=== PATIENT | female | born 1990 | race Caucasian/White ===

== ENCOUNTER → 2016-06-08 | Outpatient (CLI) | payer MEDICAID | LOC: FIMAGING 08:03 | PROVIDERS: ATTEND Advanced Practice Midwife | DX: Z34.02 Encounter for supervision of normal first pregnancy, second trimester (principal); Z3A.20 20 weeks gestation of pregnancy ==

== ENCOUNTER 2016-09-05 23:50 | Observation (INO) | payer MEDICAID ==
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
[2016-09-06] MEDS ORDERED: BETAMETHASONE IM SYRINGE IM ONE (07:15)
--- NOTE | 2016-09-06 07:22 | OBPROG ---
OBG Progress Note Assessment/Plan: Assessment: G1 # 32 6/7 weeks with contractions and positive fibronectin Plan: IV fluids DIC panel and admission labs continuous monitoring betamethasone mfm consult 09/06/16 07:13 Subjective: Patient is doing well. fibronectin was positive. patient began having contractions increasing in frequency and intensity at 530 am. I called to check on patient at 630 and was informed of both of these things. betamethasone and IV fluids were ordered. I came and assessed patient. patients belly is still gravid, soft and non tender. discussed next steps. patient is feeling every other contraction. will see what happens with IVF fluids and after betamethasone. if contractions dont decrease or there is any change in the cervix will start magnesium sulfate. Current Contraction Pattern: Irregular FHR Pattern Variability: Moderate FHR Category: 1 Membranes: Intact ICD10 Worksheet Patient Problems: Problems Problem Status Onset contractions Acute
[2016-09-06] MEDS ORDERED: LR 1,000 ML IV SCH (07:30)
[2016-09-06] MEDS: NIFEdipine 10 MG CAP PO SCH ×3 (08:23→20:11)
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
--- NOTE | 2016-09-06 08:35 | OBPROG ---
OBG Progress Note Assessment/Plan: Assessment: cat1 fhr pain 5/10 regular contractions procardia qid consult with dr. oreilly on POC iv fluid bolus mfm consult vs wnl gbs blood type previous KB at [facility] Plan:procardia consult mfm US today per M 09/06/16 08:35 Subjective: Pain 5/10. Why would you not use terbutaline for the contractions? Why procardia instead of magnesium sulfate? Dr. Oreilly to room to assess patient and come up with POC. Objective: 09/06/16 07:30 - SVE Dilation (cm): 1 Effacement (%): 50 Station: -2 Current Contraction Pattern: Regular FHR (bpm): 130 FHR Category: 1 Membranes: Intact - Physical Exam General Appearance: WD/WN, alert, no apparent distress Respiratory: chest non-tender, lungs clear, normal breath sounds Cardiac/Chest: regular rate, rhythm Abdomen: normal bowel sounds, other (contractions regular. States pain of 5/10 with contractions) Extremities: normal range of motion, Ttuu's sign (negative bilaterally) DTR- Lower Extremities: Knee (R): 1+, Knee (L): 1+ (no clonus) Skin: normal color, warm/dry Neuro/Psych: no motor/sensory deficits, alert, normal mood/affect, oriented x 3 ICD10 Worksheet Patient Problems: Problems Problem Status Onset contractions Acute
[2016-09-06 09:06] LABS: % IMMATURE GRANULYOCYTES 0.8 % (0.0-1.1); ABSOLUTE IMMATURE GRANULOCYTES 0.09 10^3/uL (0.00-0.10); ADD DIFF? NO; ADD MORPH? NO; ADD SCAN? NO; ATYPICAL LYMPHOCYTE FLAG 0 (0-99); FRAGMENT RBC FLAG 0 (0-99); HEMOGLOBIN 12.8 g/dL (12.6-16.3); LEFT SHIFT FLG 0 (0-99); LIPEMIA HEMOLYSIS FLAG 90 (0-99); MEAN CELL HEMOGLOBIN 32.5 pg (27.9-34.1); MEAN CELL HEMOGLOBIN CONCENTR. 34.6 g/dL (32.4-36.7); MEAN CELL VOLUME 93.9 fL (81.5-99.8); MEAN PLATELET VOLUME 10.3 fL (8.7-11.7); PLATELET CLUMPS FLAG 0 (0-99); PLATELET COUNT 216 10^3/uL (150-400); RED BLOOD CELL COUNT 3.94 10^6/uL (4.18-5.33); RED CELL DISTRIBUTION WIDTH 11.7 % (11.5-15.2)
[2016-09-06 09:13] LABS: APTT 25.8 SEC (23.0-38.0)
[2016-09-06 09:17] LABS: PLATELET COUNT 234 10^3/uL (150-400)
[2016-09-06 09:22] LABS: FIBRINOGEN 497 mg/dL (214-456)
[2016-09-06] MEDS ORDERED: ZOLPIDEM TARTRATE 5 MG TAB PO PRN (21:33)
[2016-09-07] MEDS: NIFEdipine 10 MG CAP PO SCH ×2 (01:57→07:53)
[2016-09-07] MEDS ORDERED: BETAMETHASONE IM SYRINGE IM ONE (07:28)
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
== END 2016-09-07 12:42 | disposition home or self-care (01) ==
LOC: UNDOADMOB 23:50 → FLD 23:50 → FOBOP 23:50 → FLD 09-06 00:57 → UNDODISOB 09-07 12:42 → EDSTATUS 09-07 17:16
PROVIDERS: ADMIT Obstetrics & Gynecology; ATTEND Obstetrics & Gynecology
DX: O60.03 Preterm labor without delivery, third trimester (principal); V43.52XD Car driver injured in collision with other type car in traffic accident, subsequent encounter; M79.7 Fibromyalgia; Z3A.32 32 weeks gestation of pregnancy
CPT/HCPCS: 59025; 76816; G0378; J0702

== ENCOUNTER 2016-09-25 11:49 | Inpatient (IN) | payer MEDICAID ==
[2016-09-25] MEDS ORDERED: OLIVE OIL 118 ML BTL MISC PRN (12:03)
[2016-09-25] MEDS ORDERED: TERBUTALINE SULFATE 1 MG/ML VIAL IV PRN (12:03)
[2016-09-25] MEDS ORDERED: LR 1,000 ML IV PRN (12:03)
[2016-09-25] MEDS ORDERED: EPSOM SALT 454 GM TP PRN (12:03)
[2016-09-25] MEDS ORDERED: OXYTOCIN/RINGERS LACTATE 1,000 ML IV PRN (12:03)
[2016-09-25] MEDS ORDERED: LR 500 ML IV PRN (12:23)
[2016-09-25] MEDS ORDERED: OXYTOCIN/RINGERS LACTATE 500 ML IV SCH (12:30)
[2016-09-25 13:14] LABS: % IMMATURE GRANULYOCYTES 0.8 % (0.0-1.1); ABSOLUTE IMMATURE GRANULOCYTES 0.08 10^3/uL (0.00-0.10); ADD DIFF? NO; ADD MORPH? NO; ADD SCAN? NO; ATYPICAL LYMPHOCYTE FLAG 0 (0-99); FRAGMENT RBC FLAG 0 (0-99); HEMATOCRIT 37.1 % (38.0-47.0); LEFT SHIFT FLG 0 (0-99); LIPEMIA HEMOLYSIS FLAG 90 (0-99); MEAN CELL HEMOGLOBIN 32.3 pg (27.9-34.1); MEAN CELL VOLUME 92.3 fL (81.5-99.8); MEAN PLATELET VOLUME 9.9 fL (8.7-11.7); PLATELET CLUMPS FLAG 0 (0-99); PLATELET COUNT 221 10^3/uL (150-400); RED BLOOD CELL COUNT 4.02 10^6/uL (4.18-5.33); RED CELL DISTRIBUTION WIDTH 11.6 % (11.5-15.2)
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
--- NOTE | 2016-09-25 18:09 | OBPROG ---
OBG Labor Progress Note Assessment/Plan: Assessment: 26 y/o @ 35 4/7 weeks with PPROM and pitocin IOL Plan: We are building up gradually on pitocin and developing a good labor pattern. She is coping with the contractions well and alternating between ambulating and resting. status is reassuring. 09/25/16 18:06 Subjective: Pt is doing well feeling some contractions increasing in intensity. Objective: 09/25/16 13:00 Patient ABO/Rh O NEGATIVE 09/25/16 13:00 - SVE Dilation (cm): 3 Effacement (%): 80 Station: -2 Jason Current Contraction Pattern: Irregular (Q 2-5) FHR (bpm): 130 FHR Pattern Variability: Moderate FHR Category: 1 Membranes: SROM Amniotic Fluid Color: Clear Oxytocin Orders Assessment - Pre-Induction/Augmentation Assessment Gestational Age: 35 week(s) and 4 day(s) ICD10 Worksheet Patient Problems: Problems Problem Status Onset premature rupture of membranes Acute contractions Acute
[2016-09-25] MEDS ORDERED: AMMONIA AROMATIC 1 EACH AMP IH ONE (19:10)
[2016-09-25] MEDS ORDERED: LIDOCAINE 1% 300 MG/30 ML SDV ONE (19:10)
[2016-09-25] MEDS ORDERED: OLIVE OIL 118 ML BTL ONE (19:10)
[2016-09-25] MEDS ORDERED: TERBUTALINE SULFATE 1 MG/ML VIAL ONE (19:11)
[2016-09-25] MEDS ORDERED: MISOPROSTOL 200 MCG TAB ONE (19:11)
[2016-09-25] MEDS ORDERED: OXYTOCIN 10 UNIT/ML VIAL ONE (19:11)
--- NOTE | 2016-09-25 21:42 | OBPROG ---
OBG Labor Progress Note Assessment/Plan: Assessment: 26 y/o @ 35 4/7 weeks with PPROM and pitocin IOL Plan: She is making cervical change and coping with contractions well. She is getting into the tub now. status is reassuring. 09/25/16 18:06 09/25/16 21:39 Subjective: Pt is beginning to feel strong contractions, breathing through them. Objective: 09/25/16 13:00 Patient ABO/Rh O NEGATIVE 09/25/16 13:00 - SVE Dilation (cm): 5 Effacement (%): 80 Station: -1 Jason Current Contraction Pattern: Regular (Q 2) FHR (bpm): 140 FHR Pattern Variability: Moderate FHR Category: 1 Membranes: SROM Amniotic Fluid Color: Clear Oxytocin Orders Assessment - Pre-Induction/Augmentation Assessment Gestational Age: 35 week(s) and 4 day(s) ICD10 Worksheet Patient Problems: Problems Problem Status Onset premature rupture of membranes Acute contractions Acute
--- NOTE | 2016-09-25 23:00 | OBPROG ---
OBG Labor Progress Note Assessment/Plan: Assessment: 26 y/o @ 35 4/7 weeks with PPROM and pitocin IOL Plan: Pt is asking for nitrous oxide now. Good cervical progression. 09/25/16 18:06 09/25/16 21:39 09/25/16 22:54 Subjective: Pt is breathing through strong contractions and feeling rectal pressure. She is doing well but feeling tired. Objective: 09/25/16 13:00 Patient ABO/Rh O NEGATIVE 09/25/16 13:00 - SVE Dilation (cm): 7 Effacement (%): 100 Station: 0 Jason Current Contraction Pattern: Regular (Q 2-3) FHR (bpm): 140 FHR Pattern Variability: Moderate FHR Category: 1 Membranes: SROM Amniotic Fluid Color: Clear Oxytocin Orders Assessment - Pre-Induction/Augmentation Assessment Gestational Age: 35 week(s) and 4 day(s) ICD10 Worksheet Patient Problems: Problems Problem Status Onset premature rupture of membranes Acute contractions Acute
[2016-09-25] MEDS ORDERED: HYDROCODONE/APAP 5/325 TAB PO PRN (23:56)
[2016-09-25] MEDS ORDERED: ACETAMINOPHEN 325 MG TAB PO PRN (23:56)
[2016-09-25] MEDS ORDERED: HYDROCORTISONE 0.5% CREAM TP PRN (23:56)
[2016-09-25] MEDS ORDERED: SIMETHICONE 80 MG TAB CHEW PO PRN (23:56)
--- NOTE | 2016-09-26 | OBDEL ---
Info Type: Vaginal GBS+: No Indications for Delivery: PPROM (35 4/7 weeks with PPROM, previously received BMZ, augmentation of labor with pitocin) Vaginal Delivery - Labor and Delivery Onset of Contractions Date: 09/25/16 Onset of Contractions Time: 21:31 Onset of Contractions Type: Induced Rupture of Membranes Date: 09/25/16 Rupture of Membranes Time: 10:30 Rupture of Membranes Type: Premature Amniotic Fluid Color: Clear Dilation Complete Date: 09/25/16 Dilation Complete Time: 23:15 Placenta Delivery Date: 09/25/16 Placenta Delivery Time: 23:36 Total Hours of Labor: 2 Non-surgical Procedures: FSE (placed during second stage to closely monitor FHT , due to prolonged deceleration to 70-80's while pushing) Laceration: 2nd Degree Repair: 2-0, Vicryl Vaginal Sponge Count Correct: Yes Vaginal Needle Count Correct: Yes Vaginal Sweep Performed: Yes EBL: 200 Delivery Events: None - Medications Labor Augmentation/Induction Methods Used: Pitocin Labor Augmentation/Induction Indication: Other (Specify) (PPROM @ 35 4/7 weeks, previously received BMZ, for IOL) [place] Data Jason Delivery Date: 09/25/16 Delivery Time: 23:31 VALENTÍN: 10/26/16 Gestational Age: 35 week(s) and 5 day(s) Sex of : Female Score (1 Min): 7 Score (5 Min): 8 ICD10 Worksheet Patient Problems: Problems Problem Status Onset premature rupture of membranes Acute contractions Acute
[2016-09-26] MEDS: IBUPROFEN 600 MG TAB PO PRN ×4 (00:01→18:15)
[2016-09-26 00:02] LABS: PH VENOUS CORD BLOOD 7.18 (7.20-7.42)
[2016-09-26 02:33] VITALS: RESP 16
[2016-09-26] MEDS: DOCUSATE SODIUM 100 MG CAP PO PRN ×2 (12:36→20:57)
--- NOTE | 2016-09-26 15:11 | OBPP ---
Progress Note Assessment/Plan: Assessment: 26 y/o PPD #1 s/p @ 35 4/7 weeks with PPROM and pitocin IOL Plan: Pt will be moved to a NICU room to be with her baby. support and routine PPC. 09/25/16 18:06 09/25/16 21:39 09/25/16 22:54 09/26/16 15:10 Subjective: Pt is doing well this am. She has min cramping with pumping and mild perineal soreness. She is taking Ibuprofen and doing well. Min lochia, tolerating reg diet. Baby is stable in the NICU needing to start photo therapy. Objective: 09/25/16 13:00 Patient ABO/Rh O NEGATIVE 09/26/16 01:25 Temp Pulse Resp BP Pulse Ox 36.5 C 80 16 110/78 96 09/26/16 08:00 09/26/16 08:00 09/26/16 08:00 09/26/16 08:00 09/26/16 08:00 Uterine Position/Fundal Height: Umbilicus -2 Uterine Tone: Firm Physical Exam - Physical Exam General Appearance: WD/WN, alert, no apparent distress Neck: non-tender, full range of motion, supple Respiratory: chest non-tender, lungs clear, normal breath sounds Cardiac/Chest: regular rate, rhythm Abdomen: normal bowel sounds Extremities: swelling (no), Tutu's sign (neg)
[2016-09-27] MEDS: IBUPROFEN 600 MG TAB PO PRN ×4 (00:04→19:40)
[2016-09-27 08:53] VITALS: O2SAT 95
[2016-09-27] MEDS: DOCUSATE SODIUM 100 MG CAP PO PRN ×2 (13:28→19:40)
--- NOTE | 2016-09-27 17:10 | OBPP ---
Progress Note Assessment/Plan: Assessment:pumping without difficulty pain well managed nipples intact discussed border to begin tomorrow perineum approximated scant rubra lochia voiding without difficulty Plan:expectant management pp day 1 09/27/16 17:08 Subjective: Doing well. Denies difficulties. with assistance. Pumping/ Voiding without difficulty Objective: 09/25/16 13:00 Patient ABO/Rh O NEGATIVE 09/26/16 01:25 Temp Pulse Resp BP Pulse Ox 36.8 C 78 16 101/61 95 09/27/16 08:00 09/27/16 08:00 09/27/16 08:00 09/27/16 08:00 09/27/16 08:00 Uterine Position/Fundal Height: At Umbilicus Uterine Tone: Firm Physical Exam - Physical Exam General Appearance: WD/WN, alert, no apparent distress Abdomen: other (ff2U) Extremities: normal range of motion, Tutu's sign (NEGAtive bilaterally) DTR- Lower Extremities: Knee (R): 1+, Knee (L): 1+ (no clonus bilaterally) Skin: normal color, warm/dry Neuro/Psych: no motor/sensory deficits, alert, normal mood/affect, oriented x 3
[2016-09-28 00:24] VITALS: BP 103/70; PULSE 75; TEMP 97.8
[2016-09-28] MEDS: IBUPROFEN 600 MG TAB PO PRN ×3 (01:06→13:36)
[2016-09-28] MEDS: DOCUSATE SODIUM 100 MG CAP PO PRN (07:24)
--- NOTE | 2016-09-28 13:46 | OBPP ---
Progress Note Assessment/Plan: Assessment: 26 y/o PPD #2 s/p @ 35 weeks ready to d/c to border. Plan: D/c to border today. Rx ibuprofen and follow-up @ [facility] 4 and 6 weeks. 09/25/16 18:06 09/25/16 21:39 09/25/16 22:54 09/26/16 15:10 09/28/16 13:47 Subjective: Pt is doing well today. She has min cramping controlled with Ibuprofen. She is ambulating, voiding and having min lochia. She has not had a BM yet. She is working on nursing and baby is overall doing well. She is ready to d/c to border later today. Objective: 09/25/16 13:00 Patient ABO/Rh O NEGATIVE 09/26/16 01:25 Temp Pulse Resp BP Pulse Ox 36.6 C 75 16 103/70 95 09/28/16 00:22 09/28/16 00:22 09/28/16 00:22 09/28/16 00:22 09/28/16 00:22 Uterine Position/Fundal Height: Umbilicus -3 Uterine Tone: Firm Physical Exam - Physical Exam General Appearance: WD/WN, alert, no apparent distress Neck: non-tender, full range of motion, supple Respiratory: chest non-tender, lungs clear, normal breath sounds Cardiac/Chest: regular rate, rhythm Abdomen: normal bowel sounds Extremities: swelling (no), Tutu's sign (neg)
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
== END 2016-09-28 14:30 | disposition home or self-care (01) | DRG 775 ==
LOC: FLD 11:49 → FOB 09-26 02:00
PROVIDERS: ADMIT Obstetrics & Gynecology; ATTEND Obstetrics & Gynecology
DX: O42.013 Preterm premature rupture of membranes, onset of labor within 24 hours of rupture, third trimester (principal); O76 Abnormality in fetal heart rate and rhythm complicating labor and delivery; O70.1 Second degree perineal laceration during delivery; Z3A.36 36 weeks gestation of pregnancy; Z37.0 Single live birth
CPT/HCPCS: J2590; J3105

== ENCOUNTER 2016-11-03 05:40 | Day surgery (SDC) | payer MEDICAID ==
--- NOTE | 2016-11-02 15:57 | GHP ---
[f rep st] PREOP HISTORY AND PHYSICAL SURGERY TO BE PERFORMED: Suction dilation and curettage on 11/03/2016 at 7:30 a.m. PREOPERATIVE DIAGNOSIS: Retained products of conception. HISTORY OF PRESENT ILLNESS: The patient is a 26-year-old, 1, para 0, who is 5 weeks status post a spontaneous vaginal delivery at 35 and 4/7th weeks ' gestation, of a viable female infant. She presented with premature rupture of the membranes at 35 and 4/7th weeks gestation. She had previously been admitted and observed for labor and had received a course of betamethasone. When she received Pitocin augmentation for her labor, and she progressed well, delivered a viable female, without complications. Apgars of 7 and 8. Placenta delivered spontaneously and appeared to be intact, and she had minimal bleeding, and a normal course. Baby was in the NICU for a couple weeks. She is doing well at home, she is breast-feeding, and baby and mom are doing well. On 10/22 she presented complaining of episodes of bright red bleeding that was becoming heavier, passing some quarter-sized clots. She had an ultrasound at that time, which revealed some slight heterogeneous pattern to her endometrium that was 0.84 cm. No clear area of placenta tissue, but some fluid toward the fundal, and unable to completely rule out products of conception. Because patient's bleeding had improved, the patient was given options, and we opted for expectant management, with followup ultrasound in 1 week. At the followup ultrasound, there was a more consolidated echogenic area in the upper endometrial canal with a feeder vessel, measuring 3.0 x 1.6 x 1.9 cm, which was definitely seen as likely retained products of conception. The patient was given treatment options of suction, dilation and curettage versus medical management with Cytotec. The patient originally opted for Cytotec, she tried 600 mg q.12 hours, and has had no bleeding or passage of tissue, and now desires to have a suction dilation and curettage. She is currently having minimal bleeding and some intermittent cramping, other than that, review of systems is negative. The patient had her care at the [facility], was transferred at 33 weeks secondary to labor, and finished her course and delivery with [facility]. PAST OBSTETRICAL HISTORY: She had no past obstetrical history, this is her first and delivery. PAST GYNECOLOGICAL HISTORY: Menarche at age 13. She had irregular and very heavy periods, and was unsure about her last menstrual period. Her was confirmed by a 6 week ultrasound. She has used control pills, NuvaRing in the past, but mostly natural planning. Denies history of abnormal Paps or STDs. PAST MEDICAL HISTORY: Significant for fibromyalgia, depression, and attention deficit hyperactivity disorder in high school. SURGICAL HISTORY: She has a history of tonsillectomy, wisdom teeth extraction, and she had a finger pin removed. The patient reports an episode of seizure like activity after anesthesia, and unclear significance of this. ALLERGIES: She has no known drug allergies. MEDICATIONS: Include vitamins and DHA. SOCIAL HISTORY: She is . She lives with her and her new daughter. 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 She denies tobacco, alcohol, and drug use. FAMILY HISTORY: Two sisters have hypothyroidism, paternal grandfather had heart disease. Paternal grandmother had breast cancer. Paternal grandfather had a stroke. OBJECTIVE: VITAL SIGNS: She is afebrile. Vital signs are stable. GENERAL: She is a well-developed, well-nourished, white female, in no acute distress. LUNGS: Clear to auscultation bilaterally. HEART: Regular rate and rhythm. No murmurs. ABDOMEN: Soft, nontender, nondistended. PELVIC: Will be performed in the operating room. Ultrasound results were as above. ASSESSMENT AND PLAN: A 26-year-old, 1, para 0-1-0-1, who is 5 weeks , with an area of retained placenta and consistent bleeding. She will have a suction, dilation and curettage. Full consent will be performed at bedside. The patient understands the risks and benefits. The risks including bleeding, infection, damage to the uterus, including possible risk of perforation, damage to other organs or perforation were to occur, risk of incomplete removal of all the tissue, needing additional procedures at a later time. The patient is aware of these risks and benefits and agreed to consent. /[id number]/MODL MTDD
[2016-11-03] MEDS ORDERED: ceFAZolin 2 GM/DEXTROSE 100 ML IV ONE (06:30)
[2016-11-03 06:57] LABS: HEMATOCRIT 41.8 % (38.0-47.0); MEAN CELL HEMOGLOBIN CONCENTR. 33.5 g/dL (32.4-36.7); MEAN CELL VOLUME 92.7 fL (81.5-99.8); RED BLOOD CELL COUNT 4.51 10^6/uL (4.18-5.33); RED CELL DISTRIBUTION WIDTH 11.2 % (11.5-15.2)
[2016-11-03] MEDS ORDERED: LR 1,000 ML IV ONE (07:30)
--- NOTE | 2016-11-03 07:53 | PDANEPAE ---
ANE History of Present Illness Retained placenta. ANE Past Medical History - Cardiovascular History Hx Hypertension: No Hx Arrhythmias: No Hx Chest Pain: No Hx Coronary Artery / Peripheral Vascular Disease: No Hx CHF / Valvular Disease: No Hx Palpitations: No - Pulmonary History Hx COPD: No Hx Asthma/Reactive Airway Disease: No Hx Recent Upper Respiratory Infection: No Hx Oxygen in Use at Home: No Hx Sleep Apnea: No - Endocrine History Hx Diabetes: No Hypothyroid: No Hyperthyroid: No Obesity: no - Chronic Pain History Chronic Pain: Yes ANE Review of Systems Review of Systems: History of fibromyalgia? and SI joint pain. ANE Patient History - Allergies Allergies/Adverse Reactions: No Known Allergies Allergy (Unverified 09/06/16 00:14) - Home Medications Home medications: none - NPO status NPO Status: no food or drink >8 hours - Anes Hx Anes Hx: slow to awaken from anesthesia (History of emergence reaction.) - Smoking Hx Smoking Status: Never smoked ANE Labs/Vital Signs - Labs Result Diagrams: 11/03/16 06:00 - Vital Signs Blood Pressure: 93/65 Heart Rate: 75 Respiratory Rate: 18 O2 Sat (%): 97 Height: 170.18 cm Weight: 59.421 kg ANE Physical Exam - Airway Neck exam: FROM Mallampati Score: Class 1 - Pulmonary Pulmonary: no respiratory distress - Cardiovascular Cardiovascular: regular rate and rhythym - ASA Status ASA Status: I ANE Anesthesia Plan Anesthesia Plan: spinal
[2016-11-03 07:56] VITALS: BP 93/65; PULSE 75; RESP 18
[2016-11-03 07:57] VITALS: O2SAT 97
[2016-11-03] MEDS ORDERED: fentaNYL 100 MCG/2 ML INJ ONE (08:27)
--- NOTE | 2016-11-03 10:22 | POSTANESTH ---
Post Anesthetic Evaluation Cardiovascular Status: Normal, Stable, Similar to Pre-Op Cond Respiratory Status: Normal, Stable, Similar to Pre-op Cond. Level of Consciousness/Mental Status: Can Participate in Eval, Alert and Oriented Pain Control: Adequate, Prn Tx Ordered Nausea/Vomiting Control: Adequate, Prn Tx Ordered Complications Possibly Related to Anesthesia: None Noted
[2016-11-03] MEDS ORDERED: ONDANSETRON 4 MG/2 ML VIAL IVP PRN (10:23)
[2016-11-03] MEDS ORDERED: fentaNYL 100 MCG/2 ML INJ IVP PRN (10:23)
[2016-11-03] MEDS ORDERED: NALOXONE HCL 0.4 MG/ML INJ IVP PRN (10:23)
[2016-11-03] MEDS ORDERED: DEXAMETHASONE 4 MG/ML VIAL IVP PRN (10:23)
[2016-11-03] MEDS ORDERED: HYDROCODONE/APAP 5/325 TAB PO PRN (10:23)
== END 2016-11-03 13:05 | disposition home or self-care (01) ==
LOC: FOBOP 05:40
PROVIDERS: ATTEND Obstetrics & Gynecology
PROC: 10D17ZZ Extraction of Products of Conception, Retained, Via Natural or Artificial Opening (ICD-10-PCS; principal; 2016-11-03)
DX: O73.0 Retained placenta without hemorrhage (principal)
CPT/HCPCS: J0690; J3010

== ENCOUNTER → 2017-08-13 | Outpatient (CLI) | payer MEDICAID | LOC: FIMAGING 14:07 | PROVIDERS: ATTEND Orthopaedic Surgery | DX: M25.531 Pain in right wrist (principal) ==

== ENCOUNTER 2017-08-31 15:25 | Emergency (ER) | payer MEDICAID ==
[2017-08-31] MEDS ORDERED: HYDROCODONE/APAP 5/325 TAB PO ONE (16:20)
[2017-08-31] MEDS ORDERED: ONDANSETRON DISINTEGRATING 4 MG TAB PO ONE ×2 (16:21→17:20)
--- NOTE | 2017-08-31 16:25 | EDPHY ---
H & P Time Seen by Provider: 08/31/17 15:40 HPI/ROS: HPI Head injury. 27-year-old female by private vehicle with her mother. This patient reports that she was carrying some boxes at approximately 12:30 p.m. This afternoon outside when she tripped on a rock and fell forward striking her right forehead. She denies loss of consciousness. She states however since this time she has had a headache, photophobia and nausea. Denies vomiting. Denies any significant neck pain. No loss of sensation or weakness in her extremities. Mother denies any confusion or changes in speech. ROS: Constitutional: No fever, no chills. No weakness. Eyes: No discharge. No changes in vision. As above. ENT: No sore throat. No nasal congestion or rhinorrhea. Respiratory: No cough. No shortness of breath. Cardiac: No chest pain, no palpitations. Gastrointestinal: No abdominal pain, no vomiting, no diarrhea. As above. Genitourinary: No hematuria. No dysuria or increased frequency with urination. Musculoskeletal: No back pain. No neck pain. No myalgias or arthralgias. Skin: No rashes. Abrasion to left medial forearm. Neurological: As above. No focal weakness or altered sensation. Past medical history: Seizure-like activity when coming out of anesthesia. Right forearm fracture. Social history: Nonsmoker. No alcohol. Here with her mother. Physical Exam: General Appearance: Alert, she appears uncomfortable but not in distress. This patient is responding to questions appropriately and in full sentences. This patient appears well-hydrated and well-nourished. Head: Normocephalic atraumatic except for a subtle right forehead superficial abrasion and hematoma, no bony step-off or deformity noted on palpation of this area. Face: Facial bones are stable on palpation. Eyes: Pupils equal and round and reactive to light, no pallor or injection. No lid erythema or edema. Photophobia present. No nystagmus. ENT, Mouth: Mucous membranes moist. Dentition is intact. No malocclusion of the jaw. No tongue lacerations or abrasions. Pharynx is clear. The bilateral nasal canals are clear. No septal hematoma. Respiratory: There are no retractions, lungs are clear to auscultation with good air movement bilaterally. Chest wall is stable to AP and lateral palpation. Cardiovascular: Regular rate and rhythm. No murmur. Gastrointestinal: Abdomen is soft and nontender, no masses, bowel sounds normal. Neurological: Motor sensory function is intact. Cranial nerves are normal. Cerebellar function intact. Skin: Warm and dry, no rashes. No lacerations, abrasions or contusions. Musculoskeletal: Neck is supple and nontender. The trachea is midline. No midline cervical, thoracic, lumbar or sacral tenderness on palpation. No flank tenderness on palpation. Extremities are symmetrical, full range of motion. All joints in the bilateral upper and bilateral lower extremities range without pain or impingement. No tenderness on palpation of the long bones in the bilateral upper and bilateral lower extremities. Psychiatric: No agitation. No depression. Database: EKG: Imaging: CT head without contrast: Negative. Results were discussed with staff radiologist Dr. Dc Toure. Procedures: Emergency department course: Her vital signs were reviewed and are normal. Her presentation is consistent with a concussion syndrome. She consents as does her mother to CT imaging of her head. She will be given 4 mg of ODT Zofran for nausea in 2 [place] tablets for her headache initially. 5:00 p.m., patient re-evaluated. Resting comfortably at this time. Repeat neurologic Assessment is nonfocal. Results of CT scan discussed with mother and patient. She is feeling better after above medications. She is up and ambulatory under her own power with a normal gait. She feels comfortable going home with her mother. I will have her follow up with Neurology for concussion syndrome. She and her mother feel comfortable being discharged. All of their questions were answered. Customary return to emergency department precautions reviewed thoroughly. The patient was discharged home in good condition with her mother. Mother reported after the fact that she had vomited the [place]. Patient was given an additional 4 mg of ODT Zofran and intramuscular Toradol. She does not have any contraindications to NSAIDs. She was observed in the emergency department for about 20 min to half an hour after this medication was given. She then felt comfortable going home and was discharged as above. Differential Diagnosis: The differential diagnosis on this patient includes but is not limited to concussion syndrome. Skull fracture, cervical spine fracture, traumatic subarachnoid hemorrhage, epidural hematoma, subdural hematoma unlikely. This represents a partial list of diagnoses considered. These considerations are based on history, physical exam, past history, reassessment and diagnostic testing. Smoking Status: Never smoked Constitutional: Initial Vital Signs Temperature (C) 36.6 C 08/31/17 15:34 Heart Rate 90 08/31/17 15:34 Respiratory Rate 18 08/31/17 15:34 Blood Pressure 112/78 08/31/17 15:34 O2 Sat (%) 96 08/31/17 15:34 O2 Delivery Mode Room Air Allergies/Adverse Reactions: No Known Allergies Allergy (Unverified 08/31/17 15:33) Home Medications: Medication Instructions Recorded Ibuprofen [Motrin (*)] 600 mg PO Q6HRS PRN #30 tab 09/28/16 Ondansetron Odt [Zofran Odt 4 mg 4 mg PO Q4PRN PRN #10 tab 08/31/17 (*)] Medical Decision Making - Diagnostics Imaging Results: Imaging Impressions Head CT 08/31/17 16:21 Impression: 1. Normal CT brain without contrast. 2. No epidural or subdural hematoma. 3. No skull fracture. Findings and recommendations discussed with Emergency Department physician, Mark Fulton MD at 16:55 hour, 08/31/2017. Final report concurs with initial preliminary interpretation. - Data Points Medications Given: Discontinued Medications Hydrocodone Bitart/Acetaminophen ([place] 5/325) 2 tab PO EDNOW ONE Stop: 08/31/17 16:21 Last Admin: 08/31/17 16:59 Dose: 2 tab Ondansetron HCl (Zofran Odt) 4 mg PO EDNOW ONE Stop: 08/31/17 16:22 Last Admin: 08/31/17 16:59 Dose: 4 mg Departure - Departure Disposition: Home, Routine, Self-Care Clinical Impression: Head injury, Concussion syndrome Condition: Good Instructions: Concussion (ED), Head Injury (ED) Additional Instructions: Read and follow provided instructions. Follow-up with Dr. Moreno of the neurology service in 1-2 days for re-evaluation. Call his office this afternoon for appointment time. Explained this is for an emergency department follow-up. You can start taking ibuprofen tomorrow morning. Ibuprofen dosing: The 600 mg every 6 hours with meals for the next 3 days only. Take only as needed for pain. Take medication as prescribed for nausea. Return to the emergency department for worsening symptoms, worsening headache, vomiting and inability to keep fluids down despite medications, confusion or other serious concerns. Referrals: Lamine Moreno MD [Medical Doctor] - As per Instructions Prescriptions: Ondansetron Odt [Zofran Odt 4 mg (*)] 4 mg PO Q4PRN PRN #10 tab PRN Reason: For Nausea & Vomiting
[2017-08-31] MEDS ORDERED: KETOROLAC 30 MG/1 ML SDV IM ONE (17:21)
[2017-08-31 18:04] VITALS: BP 118/80
== END 2017-08-31 17:58 | disposition home or self-care (01) ==
DX: S09.90XA Unspecified injury of head, initial encounter (principal); F07.81 Postconcussional syndrome; W01.198A Fall on same level from slipping, tripping and stumbling with subsequent striking against other object, initial encounter; Y92.89 Other specified places as the place of occurrence of the external cause; Y99.8 Other external cause status; Y93.89 Activity, other specified
CPT/HCPCS: J1885